=== PATIENT | female | born 1960 | race Caucasian/White ===

== ENCOUNTER → 2021-05-26 | Outpatient (CLI) | payer BC ==
[2021-05-29 13:11] LABS: HPV 16 Negative (Negative); HPV 18 Negative (Negative); HPV OTHER HR TYPES Negative (Negative)
== END | disposition home or self-care (01) ==
LOC: LAB 17:36 → LAB SHORT 17:36
PROVIDERS: Family Medicine
DX: Z12.4 Encounter for screening for malignant neoplasm of cervix (principal)
CPT/HCPCS: 87624; G0123

== ENCOUNTER → 2024-07-03 | Outpatient (CLI) | payer MEDICARE, BC ==
[2024-07-03 17:45] LABS: Influenza A, PCR NEGATIVE (NEGATIVE); Influenza B, PCR NEGATIVE (NEGATIVE); Resp Syncytial Virus, PCR NEGATIVE (NEGATIVE); SARS-Cov-2 (COVID-19) PCR, MMC NEGATIVE (NEGATIVE)
== END | disposition home or self-care (01) ==
LOC: LAB 16:18 → LAB SHORT 16:18
PROVIDERS: Registered Nurse
DX: R05.9 Cough, unspecified (principal); R50.9 Fever, unspecified
CPT/HCPCS: 0241U